=== PATIENT | female | born 1935 | race Caucasian/White ===

== ENCOUNTER → 2018-06-12 | Outpatient (CLI) | payer OTHER ==
[~2018-06-12] MED LIST: ADVAIR 250-501 EACH INH; CARVEDILOL6.25 MG PO; CRESTOR20 MG PO; LEVAQUIN 500 M500 M2 PO; PLAVIX 75 MG TA75 MG PO; SEROQUEL 100 M100 M1 PER TUBE; TESSALON PERLE100 MG PO; ZOLOFT100 MG PO
--- NOTE | 2018-06-12 15:13 | 2DMMODE ---
[place] [address] 2 D/M-MODE ECHOCARDIOGRAM Name: ROSE MARY CASTILLO Room: [facility]#: [id number] Admission: 06/12/18 Attend Phys: Yuri Wellington Discharge: Date of : 37 Date of Service: 06/12/18 1513 Report #: [id number] THIS REPORT FOR: //name// APPROVED REPORT Study performed: 06/12/2018 09:02:35 EXAM: Comprehensive 2D, Doppler, and color-flow Echocardiogram Patient Location: Out-Patient Status: routine BSA: 1.75 HR: 93 bpm BP: 115/58 mmHg Other Information Study Quality: Good Indications Dyspnea CAD 2D Dimensions IVSd: 11.48 (7-11mm) LVOT Diam: 20.86 (18-24mm) LVDd: 40.56 mm PWd: 10.51 (7-11mm) Ascending Ao: 30.32 (22-36mm) LVDs: 23.50 (25-40mm) Aortic Root: 22.68 mm Volumes Left Atrial Volume (Systole) LA ESV Index: 20.10 mL/m2 Aortic Valve AoV Peak Isaias.: 1.28 m/s AO Peak Gr.: 6.59 mmHg LVOT Max P.83 mmHg AO Mean Gr.: 3.82 mmHg LVOT Mean P.88 mmHg LVOT Max V: 1.21 m/s AO V2 VTI: 28.42 cm LVOT Mean V: 0.78 m/s BAY (VTI): 3.36 cm2 LVOT V1 VTI: 27.97 cm Mitral Valve MV Peak Gr.: 5.28 mmHg MV Mean Gr.: 3.05 mmHg E/A Ratio: 1.01 MV Decel. Time: 211.34 [place] [address] 2 D/M-MODE ECHOCARDIOGRAM Name: ROSE MARY CASTILLO Room: [facility]#: [id number] Admission: 06/12/18 Attend Phys: Yuri Wellington Discharge: Date of : 37 Date of Service: 06/12/18 1513 Report #: [id number] MV E Max Isaias.: 0.88 m/s MV PHT: 61.29 ms MVA (PHT): 3.59 cm2 TDI E/Lateral E': 12.57 E/Medial E': 6.77 Medial E' Isaias.: 0.13 m/s Lateral E' Isaias.: 0.07 m/s Pulmonary Valve PV Peak Isaias.: 0.81 m/s PV Peak Gr.: 2.66 mmHg Tricuspid Valve RAP Estimate: 5.00 mmHg TR Peak Gr.: 31.24 mmHg RVSP: 36.24 mmHg PA Pressure: 36.24 mmHg Left Ventricle The left ventricle is normal size. There is normal LV segmental wall motion. There is normal left ventricular wall thickness. Left ventricular systolic function is normal. The left ventricular ejection fraction is within the normal range. LVEF is 65-70%. The left ventricular diastolic function is normal. Right Ventricle The right ventricle is normal size. The right ventricular systolic function is normal. Atria The left atrium size is normal. The right atrium size is normal. Aortic Valve Aortic valve is mildly calcified. No aortic regurgitation is present. There is no aortic valvular stenosis. Mitral Valve There is mitral annular calcification. Mild mitral regurgitation. No evidence of mitral valve stenosis. Tricuspid Valve The tricuspid valve is normal in structure. Mild tricuspid regurgitation. estimate pa pressure 40 mm Hg Pulmonic Valve The pulmonary valve is normal in structure. [place] [address] 2 D/M-MODE ECHOCARDIOGRAM Name: JONATHANNAYEROSE MARY M Room: [facility]#: [id number] Admission: 06/12/18 Attend Phys: Yuri Wellington Discharge: Date of : 37 Date of Service: 06/12/18 1513 Report #: [id number] regurgitation. Great Vessels The aortic root is normal in size. IVC is normal in size and collapses >50% with inspiration. Pericardium There is no pericardial effusion. <Conclusion> LVEF is 65-70%. Aortic valve is mildly calcified. Mild mitral regurgitation. Mild tricuspid regurgitation. estimate pa pressure 40 mm Hg <ELECTRONICALLY SIGNED> By: Donaldo Lange MD, FACC 06/12/18 1513 12 151 Donaldo Lange MD, FACC /INF
== END ==
LOC: M.CRD 08:38
DX: I08.1 Rheumatic disorders of both mitral and tricuspid valves (principal); R06.02 Shortness of breath

== ENCOUNTER → 2018-07-26 | Outpatient (CLI) | payer OTHER ==
[~2018-07-26] MED LIST changes: +IRON325 PO; +KEFLEX500 M1 PO
[2018-07-26 11:34] LABS: ABSOLUTE EOSINOPHILS 0.2 thou/uL (0.0-0.7); ABSOLUTE LYMPHOCYTES 0.6 thou/uL (0.8-5.3); ABSOLUTE MONOCYTES 0.7 thou/uL (0.0-1.2); ABSOLUTE NEUTROPHILS 3.8 thou/uL (1.6-8.1); BASOPHILS 0.8 %; EOSINOPHILS 3.2 %; LYMPHOCYTES 11.9 %; MCH 21.8 pg (26.0-34.0); MCHC 29.4 g/dL (28.0-37.0); MCV 74.3 fL (80.0-100.0); MONOCYTES 12.5 %; MPV 7.5 fl. (7.2-11.1); NUCLEATED RBCS 0 /100WBC; PLATELET COUNT* 328 thou/uL (150-400); POLYS 71.6 %; RBC 2.52 mil/uL (4.20-5.00); RDW-CV 18.9 % (10.5-14.5); WBC 5.2 thou/uL (4.0-11.0)
[2018-07-26 11:52] LABS: HEMATOCRIT 18.7 % (37.0-47.0); HEMOGLOBIN 5.5 gm/dL (12.0-15.0)
[2018-07-26 11:55] LABS: ALBUMIN 3.2 g/dL (3.4-5.0); CALCIUM 8.4 mg/dL (8.5-10.1); POTASSIUM 4.4 mmol/L (3.5-5.1); TOTAL BILIRUBIN 0.2 mg/dL (<0.1-1.0); TOTAL PROTEIN 7.1 g/dL (6.4-8.2)
[2018-07-26 12:29] LABS: HYPOCHROMASIA 2+; LARGE PLATELETS OCCASIONAL; MICROCYTES 1+; PLATELET ESTIMATE ADEQUATE
[2018-07-26 12:30] LABS: ANISOCYTOSIS 1+; OVALOCYTES 1+; POIKILOCYTOSIS 1+; POLYCHROMASIA Occasional
== END ==
LOC: M.LAB 11:17
PROVIDERS: Nurse Practitioner
DX: D64.9 Anemia, unspecified (principal); R06.09 Other forms of dyspnea; R05 Cough; R53.83 Other fatigue

== ENCOUNTER 2019-04-24 10:11 | Emergency (ER) | payer OTHER ==
[~2019-04-24] VITALS: Ht 152.4 cm; Wt 78.5 kg
[~2019-04-24 10:11] MED LIST changes: -CRESTOR20 MG PO; +LOVASTAT40 PO; -SEROQUEL 100 M100 M1 PER TUBE; +SEROQUEL 100 M100 M1 PO
[2019-04-24] MEDS ORDERED: LOPRESSOR50 PO (10:32)
[2019-04-24 11:17] LABS: HEMATOCRIT 35.7 % (37.0-47.0); MCHC 33.6 g/dL (28.0-37.0); MCV 98.2 fL (80.0-100.0); MPV 7.3 fl. (7.2-11.1); NUCLEATED RBCS 0 /100WBC; PLATELET COUNT* 131 thou/uL (150-400); RBC 3.64 mil/uL (4.20-5.00); RDW-CV 13.5 % (10.5-14.5); WBC 8.5 thou/uL (4.0-11.0)
[2019-04-24 11:22] LABS: BE 0.1 mmol/L (-2 to +3); PCO2 31.8 mmHg (35.0-45.0); PO2 68.2 mmHg (75.0-100.0); pH 7.476 (7.340-7.450)
[2019-04-24 11:22] LABS: CALCIUM 8.6 mg/dL (8.5-10.1); CREATININE 1.2 mg/dL (0.6-1.3)
[2019-04-24 11:27] LABS: ALBUMIN 3.1 g/dL (3.4-5.0); TOTAL BILIRUBIN 0.5 mg/dL (<0.1-1.0); TOTAL PROTEIN 7.2 g/dL (6.4-8.2)
[2019-04-24 11:40] LABS: ABSOLUTE LYMPHOCYTES 0.3 thou/uL (0.8-5.3); ABSOLUTE NEUTROPHILS 8.2 thou/uL (1.6-8.1)
[2019-04-24 11:41] LABS: MACROCYTES 1+; PLATELET ESTIMATE DECREASED; TOXIC GRANULATION 1+
[2019-04-24] MEDS ORDERED: FLUOCINOLONE AC15 G1 TOP (13:12)
[2019-04-24] MEDS ORDERED: KEFLEX500 M1 PO ×2 (13:12)
[2019-04-24 13:43] VITALS: BP 110/65
--- NOTE | 2019-04-24 15:02 | EKG ---
[place] [address] ELECTROCARDIOGRAM REPORT Name: JONATHANROSE MARY DUDLEYRED Room: 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: [facility] : 1935 Requested By: Marily Grace Order Number: [id number] MD: Alex Rawls Measurements Intervals [place] Rate: 96 P: 40 VT: 119 QRS: 3 QRSD: 96 T: 24 QT: 369 QTc: 467 Interpretive Statements Sinus rhythm Borderline short VT interval RSR' in V1 or V2, probably normal variant Compared to ECG 07/26/2018 12:53:35 RSR' in V1 or V2 now present Electronically Signed On 04-24-2019 15:02:14 CDT by Alex Rawls [email or web address] <ELECTRONICALLY SIGNED> By: Alex Rawls MD, FAC 04/24/19 1502 1124 [id number] Alex Rawls MD, [facility] /EPI
== END 2019-04-24 13:43 | disposition home or self-care (01) ==
LOC: M.ERS 10:11
PROVIDERS: Personal Emergency Response Attendant
DX: L03.113 Cellulitis of right upper limb (principal); J44.9 Chronic obstructive pulmonary disease, unspecified; E78.5 Hyperlipidemia, unspecified; Z90.11 Acquired absence of right breast and nipple; Z88.0 Allergy status to penicillin; Z88.6 Allergy status to analgesic agent

== ENCOUNTER 2019-04-26 12:53 | Inpatient (IN) | payer OTHER ==
[~2019-04-26] VITALS: Ht 152.4 cm; Wt 78.5 kg
[~2019-04-26 12:53] MED LIST changes: +FLUOCINOLONE AC15 G1 TOP; +LOPRESSOR50 PO
[2019-04-26 13:15] VITALS: BP 137/81
[2019-04-26 14:44] LABS: ABSOLUTE LYMPHOCYTES 0.9 thou/uL (0.8-5.3); ABSOLUTE MONOCYTES 0.6 thou/uL (0.0-1.2); BASOPHILS 0.1 %; EOSINOPHILS 0.8 %; HEMATOCRIT 35.5 % (37.0-47.0); HEMOGLOBIN 12.2 gm/dL (12.0-15.0); LYMPHOCYTES 13.8 %; MCH 33.5 pg (26.0-34.0); MCHC 34.2 g/dL (28.0-37.0); MCV 97.7 fL (80.0-100.0); MONOCYTES 8.9 %; MPV 7.7 fl. (7.2-11.1); NUCLEATED RBCS 0 /100WBC; PLATELET COUNT* 170 thou/uL (150-400); POLYS 76.4 %; RBC 3.64 mil/uL (4.20-5.00); RDW-CV 13.3 % (10.5-14.5); WBC 6.6 thou/uL (4.0-11.0)
[2019-04-26 14:51] LABS: CALCIUM 8.7 mg/dL (8.5-10.1); POTASSIUM 3.9 mmol/L (3.5-5.1)
[2019-04-26 14:55] LABS: ALBUMIN 3.1 g/dL (3.4-5.0); TOTAL BILIRUBIN 0.2 mg/dL (<0.1-1.0); TOTAL PROTEIN 7.2 g/dL (6.4-8.2)
[2019-04-26 15:49] LABS: ESR (SEDRATE) 51 mm/hr (0-30)
[2019-04-26 16:08] VITALS: BP 146/80
[2019-04-26 16:15] VITALS: BP 150/99
--- NOTE | 2019-04-26 17:31 | NUR ---
PATIENT ADMITTED TO ROOM 311 FROM ER. ALERT AND ORIENTED X 4, DEMENTIA. SPOUSE AT BEDSIDE. NO COMPLAINTS OF PAIN. IV SL, SCHED VANC INFUSING. UP WITH SBA. VITALS STABLE CHARTED. REGULAR DIET. ORIENTED TO CALL LIGHT. CALL LIGHT WITHIN REACH, WILL CONTINUE TO MONITOR.
[2019-04-26] MEDS ORDERED: PRESERVISION T1 EACH PO (18:58)
[2019-04-26] MEDS ORDERED: COREG6.25 MG PO (18:59)
[2019-04-26] MEDS ORDERED: NAMENDA 10 MG T10 MG PO (19:00)
[2019-04-26] MEDS ORDERED: ARICEPT 5 MG TAB5 MG PO (19:01)
[2019-04-26 21:40] VITALS: BP 163/81
[2019-04-27 00:30] VITALS: BP 97/56
[2019-04-27 03:50] VITALS: BP 112/59
--- NOTE | 2019-04-27 04:53 | NUR ---
PT ALERT AND ORIENTED X 3-4, FORGETFUL AT TIMES. IV ABX, HOME MEDS GIVEN PER EMAR. NO C/O PAIN. UP TO THE BATHROOM WITH STANDBY ASSIST. HOURLY ROUNDING COMPLETED. WILL CONTINUE TO MONITOR.
[2019-04-27 05:18] LABS: ABSOLUTE EOSINOPHILS 0.1 thou/uL (0.0-0.7); ABSOLUTE LYMPHOCYTES 1.2 thou/uL (0.8-5.3); ABSOLUTE MONOCYTES 0.6 thou/uL (0.0-1.2); ABSOLUTE NEUTROPHILS 2.7 thou/uL (1.6-8.1); BASOPHILS 0.3 %; EOSINOPHILS 1.3 %; HEMATOCRIT 32.4 % (37.0-47.0); LYMPHOCYTES 26.3 %; MCH 33.3 pg (26.0-34.0); MCHC 33.9 g/dL (28.0-37.0); MCV 98.2 fL (80.0-100.0); MONOCYTES 13.4 %; NUCLEATED RBCS 0 /100WBC; PLATELET COUNT* 156 thou/uL (150-400); POLYS 58.7 %; RDW-CV 13.3 % (10.5-14.5); WBC 4.6 thou/uL (4.0-11.0)
[2019-04-27 05:33] LABS: CREATININE 0.8 mg/dL (0.6-1.3); POTASSIUM 3.7 mmol/L (3.5-5.1)
[2019-04-27 07:50] VITALS: BP 147/86
--- NOTE | 2019-04-27 10:45 | CON ---
[address] [address] CONSULTATION Name: JONATHANROSE MARYBINDU RODRIGUEZ Room: [address] [place].R.#: [id number] Admission: 04/26/19 Attend Phys: Brenden Dumont MD Discharge: Date of : 37 Report #: [id number] THIS REPORT FOR: //name// CC: Brenden Dumont [facility] DATE OF SERVICE: 04/27/2019 INFECTIOUS DISEASE CONSULTATION ATTENDING PHYSICIAN: Brenden Dumont MD REASON FOR EVALUATION: Right upper extremity skin and soft tissue infection with cellulitis. HISTORY OF PRESENT ILLNESS: Chart reviewed, patient examined. This is an 83-year-old woman with history of previous right-sided mastectomy, who does have a degree of dementia as well I believe, who states experienced onset of right arm inflammatory changes including swelling, redness, associated pain, onset 1 or 2 days prior to her admission. She speculated she may have been bit by a spider, although she does not recall it per se. It is not clear if she had systemic signs or symptoms. On questioning her, she states historically she has not had issues with swelling of that extremity post-mastectomy. Due to concern about cellulitic process, she was placed on empiric therapy with vancomycin. She denies any pulmonary or gastrointestinal related complaints. States her appetite is somewhat diminished. ALLERGIES: LISTED TO PENICILLINS, TETRACYCLINES. CURRENT MEDICATIONS: Include pantoprazole, vancomycin, memantine, lovastatin, Advair inhaler, donepezil, carvedilol, quetiapine, aspirin, ferrous sulfate, enoxaparin. PAST MEDICAL HISTORY: As noted above, previous history of right-sided breast cancer, mastectomy, COPD, dementia, hyperlipidemia, depression. SOCIAL HISTORY: Former smoker. No ethanol. No illicit drug use. FAMILY HISTORY: Noncontributory. REVIEW OF SYSTEMS: Otherwise, unremarkable 10-point review of systems with exception of the above. PHYSICAL EXAMINATION: GENERAL: She is pleasant, alert, cooperative. She is in mild degree of dementia, mild to moderate distress, [place] [address] CONSULTATION Name: ROSE MARY CASTILLORED Room: [address]#: [id number] Admission: 04/26/19 Attend Phys: Brenden Dumont MD Discharge: Date of : 37 Report #: [id number] VITAL SIGNS: Temperature 97.9, pulse 93, respirations 16, blood pressure 147/86. SKIN: Warm, dry. No rashes. HEENT: Normocephalic. Extraocular muscles intact. NECK: Supple. LUNGS: Diminished breath sounds. Few scattered crackles at the bases. HEART: Regular. I do not appreciate a murmur. ABDOMEN: Soft, nontender, nondistended. EXTREMITIES: Right upper extremity has some erythrodermic type eruption. It is mildly tender to palpation. I do not appreciate any puncture sites. GENITOURINARY: Deferred. RECTAL: Deferred. LABORATORY DATA: Blood cultures sterile thus far. Initial ABG shows pH 7.476, pCO2 of 31.8, pO2 of 68.2 on room air. Electrolytes shows sodium 137, potassium 4.0, chloride 102, bicarbonate is 25, anion gap of 10, BUN and creatinine 21 and 1.2, glucose of 105. LFTs unremarkable. Albumin of 3.1. Total protein 7.2. Lactic acid initially 1.5. Chest x-ray showed no acute process. Initial blood culture from the first was 1 out of 2 with gram-positive cocci, repeats were negative thus far. Electrolytes shows sodium 139, potassium 3.9, creatinine 1.0, CRP of 62.3. ASSESSMENT AND PLAN: Right upper extremity inflammatory eruption, likely skin and soft tissue infection with cellulitis, secondly positive blood culture 1 out of 2. We will await further identification, further results of followup. I suspect she was a difficult stick. We will continue the vancomycin for the moment. Try to add some compression to the upper extremity if she will allow. We will monitor expectantly. <ELECTRONICALLY SIGNED> By: Kimo Lange MD 04/27/19 1045 [id number] [id number] Lange MD /nt
[2019-04-27 15:30] VITALS: BP 136/72; BP 172/68
--- NOTE | 2019-04-27 15:47 | NUR ---
SW met with pt and pt friend to complete initial assessment, introduce self, and SW role. Pt alert, oriented, pleasant. Pt lives at home with and wanted to be able to dc home soon but also expressed understanding for hospitalization. No known dc needs at this time. SW to continue to follow to assist with safe dc planning.
--- NOTE | 2019-04-27 16:25 | NUR ---
PATIENT UP IN CHAIR THIS SHIFT, REPOSTIONED NEEDED. PATIENT UP TO BATHROOM WITH SBA. IV SL, SCHED VANCOMYCIN INFUSING ORDERED. NO COMPLAINTS OF PAIN. RIGHT ARM WRAPPED WITH AMOR WRAP PER ID'S ORDERS.
[2019-04-27 20:13] VITALS: BP 141/79
[2019-04-28 04:54] LABS: ABSOLUTE EOSINOPHILS 0.1 thou/uL (0.0-0.7); ABSOLUTE LYMPHOCYTES 1.4 thou/uL (0.8-5.3); ABSOLUTE MONOCYTES 0.6 thou/uL (0.0-1.2); ABSOLUTE NEUTROPHILS 2.6 thou/uL (1.6-8.1); BASOPHILS 0.6 %; EOSINOPHILS 1.7 %; HEMATOCRIT 32.6 % (37.0-47.0); HEMOGLOBIN 10.8 gm/dL (12.0-15.0); LYMPHOCYTES 29.9 %; MCH 32.5 pg (26.0-34.0); MCHC 33.2 g/dL (28.0-37.0); MCV 97.9 fL (80.0-100.0); MONOCYTES 12.2 %; MPV 7.8 fl. (7.2-11.1); NUCLEATED RBCS 0 /100WBC; PLATELET COUNT* 163 thou/uL (150-400); POLYS 55.6 %; RBC 3.33 mil/uL (4.20-5.00); RDW-CV 13.1 % (10.5-14.5); WBC 4.6 thou/uL (4.0-11.0)
[2019-04-28 05:18] LABS: CALCIUM 8.4 mg/dL (8.5-10.1); CREATININE 0.8 mg/dL (0.6-1.3); POTASSIUM 3.8 mmol/L (3.5-5.1)
--- NOTE | 2019-04-28 06:26 | NUR ---
PATIENT SLEPT MOST OF THE NIGHT. IV VANC WAS GIVEN ORDERED. PATIENT HAD NO COMPLAINTS OF PAIN. PATIENT IS POSSIBLY GOING HOME TODAY. WILL CONTINUE TO MONITOR.
[2019-04-28 08:05] VITALS: BP 138/71
[2019-04-28 16:00] VITALS: BP 132/81
--- NOTE | 2019-04-28 17:15 | NUR ---
PT A&Ox4, FORGETFUL AT TIMES. VERY PLEASENT. UP STAND BY. IV PATENT, VANC DOSE INCREASED AT 1600 DOSE. DENIED PAIN. DENIED N/V. TOLERATING DIET. VISITING IN ROOM MOST OF DAY. PT STABLE. CALL LIGHT WITHIN REACH. WILL CONTINUE TO MONITOR.
[2019-04-28 20:00] VITALS: BP 145/84
[2019-04-29 04:24] LABS: ABSOLUTE EOSINOPHILS 0.1 thou/uL (0.0-0.7); ABSOLUTE LYMPHOCYTES 1.5 thou/uL (0.8-5.3); ABSOLUTE MONOCYTES 0.6 thou/uL (0.0-1.2); ABSOLUTE NEUTROPHILS 3.4 thou/uL (1.6-8.1); BASOPHILS 0.6 %; EOSINOPHILS 2.3 %; HEMATOCRIT 32.9 % (37.0-47.0); HEMOGLOBIN 11.4 gm/dL (12.0-15.0); LYMPHOCYTES 26.3 %; MCH 33.8 pg (26.0-34.0); MCHC 34.6 g/dL (28.0-37.0); MCV 97.8 fL (80.0-100.0); MONOCYTES 10.4 %; MPV 7.9 fl. (7.2-11.1); NUCLEATED RBCS 0 /100WBC; PLATELET COUNT* 179 thou/uL (150-400); POLYS 60.4 %; RBC 3.36 mil/uL (4.20-5.00); RDW-CV 12.9 % (10.5-14.5); WBC 5.7 thou/uL (4.0-11.0)
[2019-04-29 04:57] LABS: CALCIUM 8.4 mg/dL (8.5-10.1); CREATININE 0.8 mg/dL (0.6-1.3); POTASSIUM 4.1 mmol/L (3.5-5.1)
--- NOTE | 2019-04-29 05:47 | NUR ---
PATIENT SLEPT MOST OF THE NIGHT. PATIENT HAD NO COMPLAINTS OF PAIN. VANC WAS GIVEN ORDERED. ACEWRAP REMAINS TO RIGHT ARM FOR COMPRESSION. WILL CONTINUE TO MONITOR.
[2019-04-29 07:46] VITALS: BP 150/76
[2019-04-29 11:27] VITALS: BP 150/76
[2019-04-29] MEDS ORDERED: KEFLEX500 M1 PO (11:43)
--- NOTE | 2019-04-29 12:08 | NUR ---
PT DISCHARGED TO HOME AND LEFT UNIT AT 1208 BY WHEELCHAIR WITH NURSING STAFF AND . PAPER SCRIPT AND CARE NOTES GIVEN. STORED HOME MEDS GIVEN BACK TO PT. IV OUT. PT STABLE UPON DISCHARGE
== END 2019-04-29 12:12 | disposition home or self-care (01) | DRG 872 ==
LOC: M.ERS 12:53 → M.TBA-ER 14:23 → M.3W 14:23
PROVIDERS: Nurse Practitioner; ADMIT Internal Medicine
DX: A41.9 Sepsis, unspecified organism (principal); L03.113 Cellulitis of right upper limb; E44.1 Mild protein-calorie malnutrition; J44.9 Chronic obstructive pulmonary disease, unspecified; E78.5 Hyperlipidemia, unspecified; F03.90 Unspecified dementia, unspecified severity, without behavioral disturbance, psychotic disturbance, mood disturbance, and anxiety; Z88.1 Allergy status to other antibiotic agents; Z88.0 Allergy status to penicillin; Z90.11 Acquired absence of right breast and nipple; Z87.891 Personal history of nicotine dependence; Z28.21 Immunization not carried out because of patient refusal; Z68.33 Body mass index [BMI] 33.0-33.9, adult

== ENCOUNTER → 2020-02-18 | Outpatient (CLI) | payer MEDICARE ==
[~2020-02-18] MED LIST changes: +ARICEPT 5 MG TAB5 MG PO; +COREG6.25 MG PO; +NAMENDA 10 MG T10 MG PO; +PRESERVISION T1 EACH PO
--- NOTE | 2020-02-18 14:50 | 2DMMODE ---
[place] [address] 2 D/M-MODE ECHOCARDIOGRAM Name: ROSE MARY CASTILLO Room: [facility]#: [id number] Admission: 02/18/20 Attend Phys: Yuri Zamora Discharge: Date of : 37 Date of Service: 02/18/20 1450 Report #: [id number] THIS REPORT FOR: cc: Dave Alonso MD, Bruce D. MD Holkins, John M. MD [facility] ~ APPROVED REPORT Study performed: 02/18/2020 13:52:59 EXAM: Comprehensive 2D, Doppler, and color-flow Echocardiogram Patient Location: Out-Patient BSA: 1.71 HR: 88 bpm BP: 150/70 mmHg Other Information Study Quality: Good Indications CAD Hypertension/HDD 2D Dimensions IVSd: 9.10 (7-11mm) LVOT Diam: 20.52 (18-24mm) LVDd: 39.61 mm PWd: 9.57 (7-11mm) Ascending Ao: 27.81 (22-36mm) LVDs: 18.52 (25-40mm) Aortic Root: 24.33 mm Volumes Left Atrial Volume (Systole) LA ESV Index: 20.90 mL/m2 Aortic Valve AoV Peak Isaias.: 1.11 m/s AO Peak Gr.: 4.89 mmHg LVOT Max P.21 mmHg AO Mean Gr.: 2.91 mmHg LVOT Mean P.05 mmHg LVOT Max V: 0.74 m/s AO V2 VTI: 23.79 cm LVOT Mean V: 0.46 m/s BAY (VTI): 1.98 cm2 LVOT V1 VTI: 14.23 [place] [address] 2 D/M-MODE ECHOCARDIOGRAM Name: ROSE MARY CASTILLO [id number] Admission: 02/18/20 Attend Phys: Yuri Zamora Discharge: Date of : 37 Date of Service: 02/18/20 1450 Report #: [id number] E/A Ratio: 0.82 MV Decel. Time: 213.41 ms MV E Max Isaias.: 0.69 m/s MV PHT: 61.89 ms MVA (PHT): 3.55 cm2 TDI E/Lateral E': 7.67 E/Medial E': 8.63 Medial E' Isaias.: 0.08 m/s Lateral E' Isaias.: 0.09 m/s Pulmonary Valve PV Peak Isaias.: 0.68 m/s PV Peak Gr.: 1.87 mmHg Tricuspid Valve RAP Estimate: 5.00 mmHg TR Peak Gr.: 24.95 mmHg RVSP: 29.95 mmHg PA Pressure: 29.95 mmHg Left Ventricle The left ventricle is normal size. There is normal LV segmental wall motion. There is normal left ventricular wall thickness. Left ventricular systolic function is normal. The left ventricular ejection fraction is within the normal range. LVEF is 60-65%. Grade I - abnormal relaxation pattern. Right Ventricle The right ventricle is normal size. The right ventricular systolic function is normal. Atria The left atrium size is normal. The right atrium size is normal. Aortic Valve Mild aortic valve sclerosis. No aortic regurgitation is present. There is no aortic valvular stenosis. Mitral Valve Moderate mitral annular calcification. Mild mitral regurgitation. No evidence of mitral valve stenosis. Tricuspid Valve The tricuspid valve is normal in structure. Mild tricus[place] [address] 2 D/M-MODE ECHOCARDIOGRAM Name: ROSE MARY CASTILLO Room: [facility]#: [id number] Admission: 02/18/20 Attend Phys: Yuri Zamora Discharge: Date of : 37 Date of Service: 02/18/20 1450 Report #: [id number] Pulmonic Valve The pulmonary valve is normal in structure. Mild pulmonic regurgitation. Great Vessels The aortic root is normal in size. IVC is normal in size and collapses >50% with inspiration. Pericardium There is no pericardial effusion. <Conclusion> The left ventricle is normal size. There is normal left ventricular wall thickness. Left ventricular systolic function is normal. The left ventricular ejection fraction is within the normal range. LVEF is 60-65%. Grade I - abnormal relaxation pattern. The right ventricle is normal size. The left atrium size is normal. Mild aortic valve sclerosis. No aortic regurgitation is present. There is no aortic valvular stenosis. Moderate mitral annular calcification. Mild mitral regurgitation. No evidence of mitral valve stenosis. The tricuspid valve is normal in structure. Mild tricuspid regurgitation. IVC is normal in size and collapses >50% with inspiration. There is no pericardial effusion. There is normal LV segmental wall motion. <ELECTRONICALLY SIGNED> By: Russel Ferrera MD, FACC 02/18/20 1450 49 49 Russel Ferrera MD, FACC /INF
== END ==
LOC: M.CRD 13:54
PROVIDERS: ATTEND Internal Medicine
DX: I08.8 Other rheumatic multiple valve diseases (principal); I25.10 Atherosclerotic heart disease of native coronary artery without angina pectoris; I10 Essential (primary) hypertension

== ENCOUNTER → 2020-03-11 | Outpatient (CLI) | payer MEDICARE ==
--- NOTE | ~2020-03-11 | PF ---
[address] [address] PULMONARY FUNCTION REPORT Name: ROSE MARY CASTILLO Room: [facility]#: [id number] Admission: 03/11/20 Attend Phys: Dave Alonso MD Discharge: Date of : 37 Report #: [id number] THIS REPORT FOR: //name// CC: Dave Alonso DATE OF SERVICE: 03/11/2020 INTERPRETATION: The FEV1/FVC ratio is decreased to 64%. The FVC is normal at 91% with an FEV1 decreased to 79%. The QQI65-95 is decreased to 30%. The patient's FEV1 is noted to be 1.33 liters post-bronchodilator. The patient's [id number] increases by 134%. After the administration of a bronchodilator, there is no significant change in the other values in spirometry after bronchodilators. The respiratory therapist did report that the patient was unable to produce a consistent spirometry data. It is noted above though that there is a reduction in FEV1/FVC ratio to 64%, which is a hard finding. The patient was also unable to perform lung volumes. The DLCO as adjusted for hemoglobin is mildly decreased to 74%. IMPRESSION: Obstruction is noted, likely moderate with evidence of reversibility. Due to the patient's limited ability to perform spirometry and the patient being unable to perform lung volumes, data is limited. The DLCO is mildly decreased to 73%. By: [id number] andrew Hua
== END ==
LOC: M.PUL 09:30
PROVIDERS: ATTEND Family Medicine
DX: J44.9 Chronic obstructive pulmonary disease, unspecified (principal)